=== PATIENT | male | born 1955 | race Caucasian/White ===

== ENCOUNTER 2024-02-23 08:02 | Day surgery (SDC) | payer BC ==
[2024-02-20 11:37] VITALS: BMI 29.5
[~2024-02-23 08:02] MED LIST: HYDROmorphone 0.5 MG/0.5 ML SYRINGE IVP PRN; LACTATED RINGERS 1,000 ML IV SCH; MIDAZOLAM 2 MG/2 ML VIAL IV PRN
[2024-02-23] MEDS: IV FLUID CONTINUATION 1,000 ML IV ONE (08:30)
[2024-02-23 08:38] VITALS: RESP 16
[2024-02-23] MEDS: DEXAMETHASONE SOD PHOSPHATE 4 MG/ML 1 ML VIAL IV ONE (08:54)
[2024-02-23] MEDS: ONDANSETRON 4 MG/2 ML VIAL IVP ONE (08:54)
[2024-02-23] MEDS: fentaNYL (PF) 50 MCG/ML 2 ML AMP IVP ONE (09:01)
[2024-02-23] MEDS: MIDAZOLAM 2 MG/2 ML VIAL IVP ONE (09:01)
--- NOTE | 2024-02-23 09:26 | P.ANPRN ---
Procedure Note - Anesthesia - Nerve Block Performed Right Adductor Canal Single Time Out Performed: Yes (900) Date of Procedure: 02/23/24 Procedure Start Time: :01 Procedure Stop Time: 09:05 Location of Patient: PreOp Indication: Acute Post-Operative Pain, Requested by Surgeon Specifically requested for management of pain by DrGalileo: Feliz Lawrence Sedation Type: Sedate with meaningful contact maintained Preparation: Sterile Prep Position: Supine Catheter: None Needle Types: Pajunk Needle Gauge: 21 Ultrasound used to visualize needle placement: Yes Ultrasound used to observe medication spread: Yes Injectate: 0.5% Ropivacaine (see comment for volume) (15cc +10cc nacl pf) Blood Aspirated: No Pain Paresthesia on Injection Noted: No Resistance on Injection: Normal Image Stored and Saved: Yes Events: Uneventful and Well Tolerated
--- NOTE | 2024-02-23 09:27 | P.ANPRN ---
Procedure Note - Anesthesia - Nerve Block Performed Right Popliteal Single Time Out Performed: Yes (899) Date of Procedure: 02/23/24 Procedure Start Time: : Procedure Stop Time: :11 Location of Patient: PreOp Indication: Acute Post-Operative Pain, Requested by Surgeon Specifically requested for management of pain by DrGalileo: Feliz Lawrence Sedation Type: Sedate with meaningful contact maintained Preparation: Sterile Prep Position: Left Lateral Catheter: None Needle Types: Pajunk Needle Gauge: 21 Ultrasound used to visualize needle placement: Yes Ultrasound used to observe medication spread: Yes Injectate: 0.5% Ropivacaine (see comment for volume) (15cc+ 10cc nacl pf) Blood Aspirated: No Pain Paresthesia on Injection Noted: No Resistance on Injection: Normal Image Stored and Saved: Yes Events: Uneventful and Well Tolerated
[2024-02-23] MEDS ORDERED: MIDAZOLAM 2 MG/2 ML VIAL ONE (10:05)
[2024-02-23] MEDS ORDERED: GLYCOPYRROLATE 0.2 MG/ML 2 ML VIAL ONE (10:05)
[2024-02-23] MEDS ORDERED: NEOSTIGMINE 1 MG/ML 10 ML VIAL ONE (10:05)
[2024-02-23] MEDS ORDERED: WATER FOR INJECTION, STERILE 10 ML VIAL IV ONE (10:05)
[2024-02-23] MEDS ORDERED: ePHEDrine 50 MG/ML 1 ML VIAL ONE (10:05)
[2024-02-23] MEDS ORDERED: PROPOFOL 10 MG/ML 20 ML VIAL IV ONE (10:05)
[2024-02-23] MEDS ORDERED: SODIUM CHLORIDE 0.9% (PF) 10 ML VIAL ONE (10:05)
[2024-02-23] MEDS ORDERED: LIDOCAINE 1% INJ 10MG/ML (20 ML MDV) ONE (10:05)
[2024-02-23] MEDS ORDERED: fentaNYL (PF) 50 MCG/ML 2 ML AMP ONE (10:05)
[2024-02-23] MEDS ORDERED: SUCCINYLCHOLINE CHLORIDE 200 MG/10 ML VIAL IV ONE (10:05)
[2024-02-23] MEDS ORDERED: BUPIVACAIN-EPI 0.5%-1:200,000 30 ML VIAL ONE (10:05)
[2024-02-23] MEDS ORDERED: ROCURONIUM 10 MG/ML (5 ML VIAL) IV ONE (10:05)
[2024-02-23] MEDS: ceFAZolin 1,000 MG in SODIUM CHLORIDE 0.9% 1,000 ML IRRIGATION ONE (10:09)
[2024-02-23] MEDS: LACTATED RINGERS 1,000 ML IV ONE (11:51)
[2024-02-23 12:17] VITALS: TEMP 97.2
--- NOTE | 2024-02-23 12:21 | P.OP ---
Date of Procedure: 02/23/24 Preoperative Diagnosis: right Achilles tendon rupture Postoperative Diagnosis: same Procedure(s) Performed: 1. Flexor hallucis longus tendon transfer right ankle 2. Secondary repair of Achilles tendon right ankle 3. Gastroc recession right leg Implants: Arthrex 3.9 mm swivel lock anchors 2 Arthrex [id number] tissue allograft Anesthesia: MICHAEL Surgeon: Feliz Lawrence Estimated Blood Loss (ml): 20 Pathology: none sent Condition: stable Disposition: PACU Description of Procedure: Prior to the patient being brought to the operating room, anesthesia administered nerve block on the surgical extremity. Once completed, the patient was taken into the operating room. Timeout was taken to confirm correct patient identifiers, correct laterality of surgery, and correct procedure. When all staff in the room were in agreement with the timeout, the patient was induced and placed under general anesthesia. The patient was then placed in the prone position on the operating room table. Appropriate padding was placed beneath the patient's face as well as in the thoracic area. Once anesthesia was satisfied with the patient positioning, a well-padded tourniquet was placed on the thigh. Then the leg was prepped and draped in the usual manner. The leg was exsanguinated and the tourniquet inflated to 250 mmHg. Attention was directed over the posterior aspect of the leg, where the gastroc recession was performed. A linear midline incision was made distal to the gastroc muscle belly. The incision was deepened down to the subcutaneous layer careful to identify, avoid, and retract any neurovascular structures and cauterize any bleeding vessels. Blunt dissection was carried down to level the deep fascia. The fascia was incised and then bluntly dissected off the gastroc aponeurosis. A transverse incision was made through the aponeurosis from medial to lateral. Once completed,the wound was thoroughly irrigated. The subcutaneous layer was closed with 4-0 Vicryl. And skin closure done with 3-0 Stratafix in a running subcuticular manner. Then attention was directed over the Achilles insertion. A linear incision was made along the medial side of the Achilles tendon, from proximal to the rupture and extending to the insertion point. The incision was deepened down to the subcutaneous layer, careful to identify, avoid, and retract any neurovascular structures and cauterize any bleeding vessels. The skin and subcutaneous layers were dissected in a full-thickness flap off the Achilles tendon. There was evidence of a full-thickness rupture from the insertion, marked by fraying of the tendon and retraction of the proximal stump.There was a large calcific density in the body of the Achilles tendon superior to the insertion point. This was carefully dissected and removed. Any abnormal tissue in the Achilles tendon insertion, as well as the proximal portion of the stump, was also sharply debrided. Once that was completed attention was directed to the posterior calcaneus where there was a large calcaneal spur. An osteotome was used to remove all the abnormal bony growth in the posterior calcaneus. This also allowed for exposure the bone to help facilitate the reattachment of the Achilles tendon. The area was thoroughly irrigated with sterile saline. Attention was directed to the distal posterior muscle compartment fascia just deep to the Achilles tendon. It was incised medial to the midline starting at the calcaneus and bluntly dissected until the muscle belly of the flexor hallucis longus tendon was identified. The muscle was released so that it could abut against the Achilles tendon once it was transferred. The tendon was then followed down into the deep medial compartment and the ankle and great toe or plantar flex to allow for full exposure of the tendon. The tendon and it was carefully transected and delivered in the surgical field. A whipstitch was then placed on the transected end of the tendon. A guidewire was inserted just anterior to the Achilles insertion and advanced out the plantar aspect of the calcaneus just distal to the tuberosities. An 8.5 mm reamer was then used over the guidewire to ream a hole from dorsal to plantar to the calcaneus. The wire was left in place and then the sutures in the whipstitch were plaster the eyelet and then the guidewire pulled to the plantar surface of the heel along with the suture. Sutures were grasped and tension to bring the flexor hallucis longus tendon into the bony canal and the calcaneus. The ankle was positioned and the tendon properly tensioned. An 8 mm interference screw was then inserted the drill hole locking the tendon in place. The ankle was taken through range of motion and it indicated that there was good tension at the tendon transfer was no evidence of slippage. A large sponge forceps was used to grasp proximal stump of the Achilles tendon and pull it distally. The Arthrex PARS jig was inserted on either side of the Achilles tendon with the inner arms inside the peritenon. With tension placed on the proximal stump of the Achilles tendon, a needle was passed through the #1 position of the PARS jig to lock the tendon in place. The #2 suture was passed next. The looped locking stitches were passed through the holes 3 and 4. The last suture was through 5. The sutures are then evened out and then the PARS jig was retracted distally to pull the suture within the peritenon and along the course of the proximal stump of the Achilles tendon. The sutures were delivered into the surgical field. The looped sutures were used to pass the #2 suture to create a locking stitch both medially and laterally. The looped sutures then placed on the back table and set aside. Tension was placed on both suture stacks and pulled distally to remove any creep from the suture in the tendon. Once the creep was removed, tension was placed on the tendon, which indicated that the suture had a good grasp of the tendon given that the gastroc muscle belly was moving while pulling on the suture. The drill bit for the 4.75 mm swivel lock anchor was used to create drill holes in the calcaneus. The drill holes were then tapped. The suture passer was placed through the calcaneal incisions and then passed through the distal stump of the Achilles tendon exiting out at the rupture site. The suture passer was then used to grasp the suture stack and pull it through the distal stump of the tendon and out the corresponding incision over the calcaneus. This was then repeated with the opposite side. With tension placed on the suture to bring the tendon ends together, the suture was passed through the swivel lock anchor which was then inserted into the drill hole in the calcaneus and the swivel lock was impacted and advanced to lock the suture in place. This was then repeated for the opposite side. Then the knee was flexed and Gomez's test was performed. Gomez's test was negative. There was a gap from the proximal stump to the insertion of the heel, therefore a direct reattachment of the Achilles tendon was not possible. It was however, tissue in the area that was able to be sewn over the defect. And then an Arthrex [id number] tissue graft was placed over the repair site. This was sewn into the tissue utilizing absorbable suture. Once the repair was completed, the ankle was taken through range of motion. There was tension through the repaired Achilles tendon as well as motion of the gastroc muscle belly with ankle range of motion. Nonabsorbable suture was then used to sew the flexor hallucis longus muscle belly to the deep side of the Achilles tendon along the length of the transfer. The area was thoroughly irrigated with sterile saline. The subcutaneous layer was closed with 4-0 Monocryl and skin closure done with sonia. Both incisions were covered with an Arthrex jumpstart dressing. A dry bulky dressing was then applied to the leg. The tourniquet was released and capillary refill return to all digits on the foot. The patient was then placed in a well-padded, well molded plaster posterior mold/sugar tong splint. The ankle was held at 90 until the splint was fully dried. Then the patient was rolled back to the transfer table. Anesthesia was reversed and the patient was extubated. The patient tolerated the above procedure and anesthesia well, and went to recovery with vital signs stable.
[2024-02-23] MEDS: IBUPROFEN 600 MG TAB PO STA (13:26)
[2024-02-23 13:29] VITALS: BP 118/74; PULSE 74
== END 2024-02-23 13:55 | disposition home or self-care (01) ==
LOC: OR 08:02
PROVIDERS: ATTEND Podiatrist
DX: S86.011A Strain of right Achilles tendon, initial encounter (principal); G89.18 Other acute postprocedural pain; X58.XXXA Exposure to other specified factors, initial encounter
CPT/HCPCS: 64447; 64445; 27687; 28202; 27691; C1713 ×2; Q4125; J2250; J0330; J1100; J2710; J0690 ×2; J2405; J2001; J3010; J2704; J1596